=== PATIENT | male | born 1935 | race Caucasian/White ===

== ENCOUNTER 2017-06-14 12:21 | Inpatient (IN) | payer MEDICARE, MEDICAID ==
[2017-06-14] MEDS ORDERED: Levofloxacin 500mg/100mL 500 MG/100 ML BAG IV ONE ×2 (14:14→14:39)
[2017-06-14] MEDS ORDERED: Lactulose 10 Gm/15 mL 30mL UDC GT STA (14:45)
[2017-06-14] MEDS ORDERED: guaiFENesin 200 MG/10 ML UDC PO ONE (14:46)
[2017-06-14 14:48] LABS: % BASOPHILS 0.4 % (0.0-2.0); % EOSINOPHILS 0.8 % (0.0-5.0); % LYMPHOCYTES 19.6 % (20.0-50.0); % MONOCYTES 9.2 % (2.0-10.0); BASOPHILE ABSOLUTE 0.1 Th/cumm (0-0.2); EOSINOPHILE ABSOLUTE 0.1 Th/cmm (0.1-0.4); HEMATOCRIT 34.7 % (41.0-60); HEMOGLOBIN 11.7 gm/dL (12-16); LYMPHOCYTE ABSOLUTE 3.6 Th/cmm (1.5-3.0); MEAN CELL VOLUME 89.8 fl (80-99); MEAN CORPUSCULAR HEMOGLOBIN 30.4 pg (27.0-31.0); MEAN CORPUSCULAR HGB CONC 33.8 pg (28.0-36.0); MEAN PLATELET VOLUME 6.9 fl; MONOCYTE ABSOLUTE 1.7 Th/cmm (0.3-1.0); NEUTROPHILE ABSOLUTE 12.7 Th/cmm (1.8-8.0); PLATELET COUNT 381 Th/cmm (150-400); RED BLOOD COUNT 3.86 Mil/cmm (3.80-5.80); RED CELL DISTRIBUTION WIDTH 15.3 % (11.5-20.0)
[2017-06-14] MEDS ORDERED: Docusate Sodium/Senna Tab GT ONE (14:53)
[2017-06-14 14:55] LABS: WHITE BLOOD COUNT 18.2 Th/cmm (4.8-10.8)
[2017-06-14] MEDS ORDERED: Piperacillin Sodium/Tazobact 2.25 gm Vial IV ONE (15:08)
[2017-06-14 15:10] LABS: ALB/GLOB RATIO 1.1 (1.0-1.8); ALBUMIN 3.2 gm/dL (4.2-5.5); ALKALINE PHOSPHATASE 86 U/L (34-104); ANION GAP 11.1 (7.0-16.0); BILIRUBIN,TOTAL 0.5 mg/dL (0.3-1.0); BUN - UREA NITROGEN 38 mg/dL (7-25); CALCIUM SERUM 9.7 mg/dL (8.6-10.3); CARBON DIOXIDE 28.1 mEq/L (21.0-31.0); CHLORIDE 98 mEq/L (98-107); CREATININE - SERUM 3.7 mg/dL (0.7-1.3); GLUCOSE 121 mg/dL (70-105); POTASSIUM SERUM 3.2 mEq/L (3.5-5.1); SGOT 11 U/L (13-39); SGPT/ALT 11 U/L (7-52); SODIUM SERUM 134 mEq/L (136-145); TOTAL PROTEIN,SERUM 6.2 gm/dL (6.0-8.3)
[2017-06-14 15:11] LABS: CHOLESTEROL 125 mg/dL (<200); HDL -HIGH DENSITY LIPOPROTEIN 42 mg/dL (23-92); TRIGLYCERIDES 120 mg/dL (<150)
[2017-06-14 15:12] LABS: ALB/GLOB RATIO 1.2 (1.0-1.8); ALBUMIN 3.2 gm/dL (4.2-5.5); BILIRUBIN,DIRECT 0.16 mg/dL (0.0-0.2); BILIRUBIN,TOTAL 0.5 mg/dL (0.3-1.0); TOTAL PROTEIN,SERUM 5.9 gm/dL (6.0-8.3)
--- NOTE | 2017-06-14 15:28 | Diagnostic Imaging Report ---
Portable chest x-ray HISTORY: Cough The heart size appears to be at the upper limits of normal. No acute focal pulmonary processes. A vascular catheter tip is in the region of the superior vena cava. Several calcifications noted about the left shoulder region that appear to be related to the synovium (question synovial chondromatosis). Severe arthritic changes also noted. IMPRESSION: 1. No acute pulmonary abnormalities
--- NOTE | 2017-06-14 16:53 | ER Physician Documentation ---
DATE OF SERVICE: 06/14/2017 ER PATIENT EVALUATION AND TREATMENT The patient came from [facility] with a dialysis device in the right subclavian vein and right internal jugular vein had tunneled down and he gets dialysis for the past 3 months every Wednesday, Wednesday and Wednesday. The patient's primary care physician is Dr. Elaine Perez, his telephone number is [phone]. The patient belongs to him. I am seeing this patient today for the first time in the Emergency Room. The patient himself can speak some Israeli. The patient's cannot speak Israeli. The was present with me and the nurse Roma, was able to help me translate some of the history from the patient. The patient came with nausea and vomiting and has no bowel movement for the past two to three days. The patient had some cough before, but no cough at the present moment. ALLERGIES: Opiates and narcotics. HISTORY OF PRESENT ILLNESS: The patient apparently had been fairly stable, then he started having some constipation and then nausea and vomiting and cough. Before few days, he did cough up some phlegm, but now according to the , the patient feels better. The patient does not have any fever, chills or rigors. The patient's vital signs when he came in was temperature 98.8, pulse 97, respirations 22, blood pressure 121/83, oxygen saturation 93%. Height is 5 feet 8 inches and weighing over 194 pounds. MEDICAL DECISION MAKING: The patient does not have any pain and his code status is found to be blue. The patient does not have any history of pneumonia, flu, tetanus. He does not smoke, he does not drink, he does not use any illicit drugs. PAST MEDICAL HISTORY: He has a history of depression, history of some skin ulcer at the present moment, I see in both hands. The patient has some tear in the skin that needs to be taken care and the nurse will take care of that and clean it up with hydrogen peroxide and apply dressing over there. The patient has a history of diabetes, hypertension, end-stage renal failure and the patient is on dialysis program. FAMILY HISTORY: Benign and negative. The patient had venous mapping done in the past to find out about way to put the shunts, peripheral access of the forearm veins. Bilateral upper extremity venogram, bilateral central vein venogram was done. It showed the patient had arthritic patent foramen veins bilaterally. In the right upper extremity, the cephalic and the basilic veins are patent with dominant flow through the basilic vein. Central venous system is patent, but the patient does have a right jugular dialysis catheter in place and there may be some stenosis around the right brachiocephalic vein around the catheter. On the left side, the basilic cephalic veins are seen, dominant fluorescein through the basilic veins. The patient came from [facility], [facility] and patient had some lab workup done over there. This was done on 06/04/2016, hardly 9 days before, at which time his white count was 11.3 with a shift to the left was detected. His platelet count was 241,000. Hematocrit is 34.8. BUN was found to be 55, creatinine 3.8. White count was up. Hemoglobin was 16.5. Sed rate was found to be 17. The patient's glucose level, electrolytes were normal. BUN 55, creatinine 3.8. This is male patient, but they gave the GFR for the female patient. With a male patient, is about 16 and so his GFR is found to be low. The patient other history of present illness is negative for smoking, COPD, emphysema, bronchitis. Some cough and constipation is present. OTHER DIAGNOSES: At present that I would mention towards the end of the dictation so that repetition is avoided. The patient is getting renal diet, mechanical soft texture, regular consistency. The patient has a G-tube placement done and feeding has been changed from the renal diet to nephro one time a day for supplement. There is 237 mL. REVIEW OF SYSTEMS: There is no history of stroke or paralysis. Some dementia history is present. PHYSICAL EXAMINATION: The patient appears to be at least awake. At least, he is alert. At least, he knows Israeli and he did speak some Israeli words to me and is not in any acute cardiorespiratory distress. He appears to be weak. According to the , he does not walk for the past 5 months. He is adequately built, but very poorly nourished. He has muscular atrophy seen in the lower extremities. Peripheral pulses are faint, but otherwise is okay. On general exam, what I mentioned earlier there is no gross evidence of congestive heart failure. Neck veins are not distended. Right-sided double lumen catheter has been inserted though the internal jugular vein. The patient has a history of major depressive disorder and end-stage renal failure. The patient also had ESBL infection resistance and essential hypertension, muscle weakness, oropharyngeal phase, type 2 diabetes mellitus with diabetic nephropathy. The patient has long-term use of insulin in the past. The patient had pressure ulcer of sacral region, stage III. Acute embolism and thrombosis of unspecified. Deep veins of lower extremities was noted. On physical examination of the chest, the trachea is central. Fair air entry is present in both lungs, but bibasilar crackles are audible in both the lungs. The heart reveals S1, S2 present. Third heart sounds seem to be absent to my knowledge. Fourth heart sound is present. I did not appreciate a good heart sound present in him, but the crackles that I heard are sounding like moist crackles present in this patient. The patient is allergic to hydrocodone, hydromorphone, oxycodone, morphine related vomiting x 3. No bowel movement for 4 days, possible obstruction, I doubt. Clinically, there is no definite evidence of any obstruction. Vomiting x 3. Dialysis; the patient was sedated for today at 2:00 p.m. Since the patient has abdominal pain and vomiting and constipation, obviously ileus or partial intestinal obstruction needs to be ruled out. Heart sounds as I mentioned is present. No abnormal murmur, click or rub is present. Abdomen is soft, benign, and bowel sounds are present. Liver, spleen not enlarged. No free fluid in the abdominal cavity. Central nervous system; the patient at least is alert. No tenderness in the costovertebral angle. EKG that was done by the composite bond technician just now shows evidence of normal sinus rhythm, left anterior fascicular block, right bundle branch block and poor R-wave progression from V1-V3. There may be evidence of right ventricular hypertrophy in this patient and most likely there is a good suggestion that there is a biventricular hypertrophy in view of the large of at least 15 mm seen in V6. All this could help in the diagnosis of biventricular enlargement. In conclusion, the patient presented with abdominal pain, nausea, vomiting and constipation for 3 days. Obviously, intestinal obstruction needs to be ruled out, but the patient is not taking any medications like hydrocodone, hydromorphone, oxycodone, morphine. He is allergic to this medication, but we will give him some lactulose through the G-tube and see what the results are. If needed, we can get gastric evaluation done by Gastrografin evaluation through the G-tube done. The patient is getting dialysis as per Dr. Perez. Pharmacy is [facility]. The patient's other diagnosis are pressure ulcer of the left heel, stage 1; low back pain; gastroesophageal reflux disease without esophagitis, long-term use of anticoagulants; acquired absence of other genital organs, major depressive disorder, single episode, end-stage renal disease, on dialysis program Wednesday, Wednesday and Wednesday. The patient had a history of ESBL type of infection; extended spectrum beta lactamase resistant; essential primary hypertension; muscle weakness; unspecified wasting of the muscles; long-term use of insulin; pressure ulcer on the sacral region, stage III; embolism and thrombosis, of unspecified diagnosis. The plan is to get a chest x-ray done and we will give the patient some lactulose and may be enema as needed. OTHER DIAGNOSES: Includes hypertension, diabetes mellitus, end-stage renal disease, dysphagia, depression, etc. PLAN: To investigate, treat the patient, give him Zofran, give some lactulose to the patient along with some milk of magnesia and other diabetes medicines and other hypertensive medications that he was taking will be continued. Dialysis by the dialysis doctor will be continued. I do not see any list of the medications. Here, the patient's other diagnosis are end-stage renal failure should be noted. The patient has anemia and most likely it might be the patient has some kind of maybe some dehydration also might have been present. The patient is getting renal diet and nephro as a supplement. In every shift, check the patency and placement of the G-tube residual, etc. will need to be checked up. JOB# [id number]
[2017-06-14] MEDS ORDERED: Albuterol Nebulizer 2.5mg/3mL HHN PRN (17:52)
[2017-06-14] MEDS ORDERED: INSULIN ASPART, RECOMBINANT 100 UNITS/ML SUBQ SCH (21:00)
[2017-06-14 23:06] VITALS: BP 127/78
--- NOTE | 2017-06-15 08:07 | History & Physical ---
ADMIT DATE: 06/14/2017 CHIEF COMPLAINT: Intractable nausea and vomiting and fevers. HISTORY OF PRESENT ILLNESS: The patient is an 82-year-old male who is a patient of mine at [facility]. He is dialysis dependent. The patient presented to the hospital complaining of nausea, vomiting, abdominal pain, and some fevers as well. He was found to have sepsis and admitted for further workup and treatment. PAST MEDICAL HISTORY: Significant for depression, dysphagia, renal failure with end-stage renal disease, malnutrition, diabetes, GERD, and depression. SOCIAL HISTORY: No history of alcohol, tobacco, or drug abuse. ALLERGIES: He is apparently allergic to OPIATES and NARCOTICS. Apparently, it is not a true allergy, but he does experience side effects. FAMILY HISTORY: Noncontributory. PAST SURGICAL HISTORY: Positive for dialysis catheter placement and G-tube placement. MEDICATIONS: All medication reviewed and reconciled. REVIEW OF SYSTEMS: GENERAL: Positive for recent fatigue and fevers. HEENT: No recent head trauma, change in vision, taste, hearing, or smell. Oral: No recent pain or discharge. NECK: No recent tracheal deviation. ABDOMEN: Positive for recent abdominal pain. GASTROINTESTINAL: Positive for recent nausea and vomiting. SKIN: No recent rashes. PSYCHIATRIC: He has history of depression, but no psychosis. MUSCULOSKELETAL: Positive history of muscle weakness. NEUROLOGIC: Possible history of stroke in the past. RESPIRATORY: No history of recent COPD exacerbation. No history of asthma. GENITOURINARY: Positive history of dysuria with a minimal amount of urine he makes. PHYSICAL EXAMINATION: VITAL SIGNS: Temperature 98.7 degrees, heart rate is 94, respirations 20, and blood pressure 151/84. Currently, pain is about 2/10. GENERAL: No acute distress, awake. He is alert to name. He knows he is in the hospital. HEENT: No acute issues. NECK: Trachea is midline. ABDOMEN: Slightly tender, but bowel sounds are present. He thinks he is constipated SKIN: No rashes. NEUROLOGIC: Stable. MUSCULOSKELETAL: Decreased muscle strength in upper and lower extremities. PSYCHIATRIC: No psychosis or hallucination. LABORATORY DATA: White count is 18.2, hemoglobin is 11.7, and platelet count 381,000. Sodium 134, potassium 3.2, chloride 98, bicarbonate 28.1, BUN 38, creatinine 3.7, and glucose 121. Chest x-ray is negative. ASSESSMENT: 1. Sepsis. 2. End-stage renal disease. 3. Gastrointestinal upset. 4. Dysphagia. 5. Vasomotor nephropathy. 6. Hypokalemia. 7. Moderate malnutrition. 8. Diabetes mellitus. 9. Gastroesophageal reflux disease. 10. Depression. PLAN: The patient's UA has been ordered along with a KUB and repeat chest x-ray. Follow up on blood cultures. Dr. Huff has been consulted for Nephrology. His group will be seeing the patient. Follow up on the rest of the labs. Continue IV Zosyn. He will be requiring dialysis as well. Prognosis is guarded. JOB# [id number]
[2017-06-15 08:11] LABS: IRON LC 41 ug/dL (38-169); TIBC (LC) 183 ug/dL (250-450); UIBC 142 ug/dL (111-343)
--- NOTE | 2017-06-15 08:31 | Diagnostic Imaging Report ---
CHEST X-RAY: AP view INDICATION: Sepsis COMPARISON: 06/14/2017 FINDINGS: Right dialysis catheter is stable. No focal consolidation or pleural effusions. Borderline prominent heart is noted with atherosclerosis. IMPRESSION: No focal consolidation identified Borderline prominent heart with atherosclerotic vascular disease.
--- NOTE | 2017-06-15 08:31 | Diagnostic Imaging Report ---
KUB single view HISTORY: Nausea vomiting abdominal pain. COMPARISON: None FINDINGS: Percutaneous gastric feeding tube is noted. Nonspecific calcifications of the left mid abdomen are noted. Moderate stool is noted with distal feculent impaction. Atherosclerosis is noted. Degenerative changes of spine are noted. IMPRESSION: Moderate amount of stool with distal fecal impaction. Percutaneous gastric feeding tube and calcification along the left hemiabdomen, nonspecific and may represent renal stones.
[2017-06-15] MEDS ORDERED: Vitamin B Complex w/Vitamin C Tab PO SCH (09:00)
[2017-06-15] MEDS ORDERED: DICLOFENAC SODIUM 1% TP SCH (09:00)
[2017-06-15] MEDS ORDERED: Multivitamin w/ Minerals Tab GT SCH (09:00)
[2017-06-15] MEDS: Piperacillin/Tazobact 2.25 gm in 0.9% NS 50 ML IV SCH ×3 (09:08→17:11)
[2017-06-15] MEDS: Multivitamin w/ Minerals Tab PO SCH (09:09)
[2017-06-15] MEDS: Vitamin B Complex w/Vitamin C Tab PO SCH (09:11)
[2017-06-15 11:00] LABS: URINE MICROSCOPIC INDICATED? YES; URINE SOURCE CATH
[2017-06-15 11:17] LABS: URINE BILIRUBIN SMALL (NEGATIVE); URINE BLOOD TRACE (NEGATIVE); URINE GLUCOSE (UA) NEGATIVE (NEGATIVE); URINE KETONE NEGATIVE (NEGATIVE); URINE LEUKOCYTE ESTERASE MODERATE (NEGATIVE); URINE NITRATE NEGATIVE (NEGATIVE); URINE PH 5.5 (4.6 - 8.0); URINE PROTEIN >=300 mg/dL (NEGATIVE); URINE UROBILINOGEN 0.2 E.U./dL (0.2 - 1.0)
[2017-06-15 11:18] LABS: URINE CLARITY CLOUDY (CLEAR); URINE COLOR YELLOW
[2017-06-15 11:35] LABS: URINE EPITHELIAL CELLS FEW /lpf (FEW); URINE WBC 25-50 /hpf (0-5)
[2017-06-15 11:36] LABS: URINE BACTERIA 2+ /hpf (NONE SEEN)
[2017-06-15 11:37] LABS: URINE OTHER CRYSTALS FEW /hpf
--- NOTE | 2017-06-15 16:01 | General Progress Note ---
Subjective - Review of Systems Service Date: 06/15/17 Events since last encounter: Tolerated HD evening of 06/14, 1.5L removed Objective - Results Result Diagrams: 06/14/17 14:30 06/14/17 14:30 Recent Labs: Laboratory Last Values WBC 18.2 Th/cmm (4.8-10.8) H 06/14/17 14:30 RBC 3.86 Mil/cmm (3.80-5.80) 06/14/17 14:30 Hgb 11.7 gm/dL (12-16) L 06/14/17 14:30 Hct 34.7 % (41.0-60) L 06/14/17 14:30 MCV 89.8 fl (80-99) 06/14/17 14:30 MCH 30.4 pg (27.0-31.0) 06/14/17 14:30 MCHC Differential 33.8 pg (28.0-36.0) 06/14/17 14:30 RDW 15.3 % (11.5-20.0) 06/14/17 14:30 Plt Count 381 Th/cmm (150-400) 06/14/17 14:30 MPV 6.9 fl 06/14/17 14:30 Neutrophils % 70.0 % (40.0-80.0) 06/14/17 14:30 Lymphocytes % 19.6 % (20.0-50.0) L 06/14/17 14:30 Monocytes % 9.2 % (2.0-10.0) 06/14/17 14:30 Eosinophils % 0.8 % (0.0-5.0) 06/14/17 14:30 Basophils % 0.4 % (0.0-2.0) 06/14/17 14:30 Sodium 134 mEq/L (136-145) L 06/14/17 14:30 Potassium 3.2 mEq/L (3.5-5.1) L 06/14/17 14:30 Chloride 98 mEq/L (98-107) 06/14/17 14:30 Carbon Dioxide 28.1 mEq/L (21.0-31.0) 06/14/17 14:30 Anion Gap 11.1 (7.0-16.0) 06/14/17 14:30 BUN 38 mg/dL (7-25) H 06/14/17 14:30 Creatinine 3.7 mg/dL (0.7-1.3) H 06/14/17 14:30 Est GFR ( Amer) TNP 06/14/17 14:30 Est GFR (Non-Af Amer) TNP 06/14/17 14:30 BUN/Creatinine Ratio 10.3 06/14/17 14:30 Glucose 121 mg/dL (70-105) H 06/14/17 14:30 POC Glucose 159 MG/DL (70 - 105) H 06/15/17 14:38 Whole Bld Lactic Acid 0.90 mmol/L (0.60-1.99) 06/14/17 15:13 Calcium 9.6 mg/dL (8.6-10.3) 06/14/17 14:30 Phosphorus 3.8 mg/dL (2.5-5.0) 06/14/17 14:00 Magnesium 2.2 mg/dL (1.9-2.7) 06/14/17 14:30 Iron 41 ug/dL (38-169) 06/14/17 15:13 TIBC 183 ug/dL (250-450) L 06/14/17 15:13 Iron Saturation 22 % (15-55) 06/14/17 15:13 Unsaturated IBC 142 ug/dL (111-343) 06/14/17 15:13 Total Bilirubin 0.5 mg/dL (0.3-1.0) 06/14/17 14:30 Direct Bilirubin 0.16 mg/dL (0.0-0.2) 06/14/17 14:30 AST 11 U/L (13-39) L 06/14/17 14:30 ALT 12 U/L (7-52) 06/14/17 14:30 Alkaline Phosphatase 90 U/L (34-104) 06/14/17 14:30 C-Reactive Protein 1604.0 mg/dL (0.0-0.9) H 06/14/17 14:30 B-Natriuretic Peptide 562.0 pg/mL (5.0-100.0) H 06/14/17 14:30 Total Protein 5.9 gm/dL (6.0-8.3) L 06/14/17 14:30 Albumin 3.2 gm/dL (4.2-5.5) L 06/14/17 14:30 Globulin 2.7 gm/dL 06/14/17 14:30 Albumin/Globulin Ratio 1.2 (1.0-1.8) 06/14/17 14:30 Triglycerides 120 mg/dL (<150) 06/14/17 14:30 Cholesterol 125 mg/dL (<200) 06/14/17 14:30 LDL Cholesterol Direct 66 mg/dL (75-193) L 06/14/17 14:30 HDL Cholesterol 42 mg/dL (23-92) 06/14/17 14:30 Urine Source CATH 06/15/17 09:30 Urine Color YELLOW 06/15/17 09:30 Urine Clarity CLOUDY (CLEAR) 06/15/17 09:30 Urine pH 5.5 (4.6 - 8.0) 06/15/17 09:30 Ur Specific Cordell 1.025 (1.005-1.030) 06/15/17 09:30 Urine Protein >=300 mg/dL (NEGATIVE) 06/15/17 09:30 Urine Glucose (UA) NEGATIVE mg/dL (NEGATIVE) 06/15/17 09:30 Urine Ketones NEGATIVE mg/dL (NEGATIVE) 06/15/17 09:30 Urine Blood TRACE (NEGATIVE) 06/15/17 09:30 Urine Nitrate NEGATIVE (NEGATIVE) 06/15/17 09:30 Urine Bilirubin SMALL (NEGATIVE) H 06/15/17 09:30 Urine Urobilinogen 0.2 E.U./dL (0.2 - 1.0) 06/15/17 09:30 Ur Leukocyte Esterase MODERATE (NEGATIVE) H 06/15/17 09:30 Urine RBC 2-5 /hpf (0-5) H 06/15/17 09:30 Urine WBC 25-50 /hpf (0-5) H 06/15/17 09:30 Ur Epithelial Cells FEW /lpf (FEW) 06/15/17 09:30 Uric Acid Crystals FEW /hpf (NONE SEEN) 06/15/17 09:30 Other Crystals FEW /hpf 06/15/17 09:30 Urine Bacteria 2+ /hpf (NONE SEEN) H 06/15/17 09:30 - Physical Exam Vitals and I&O: Vital Signs Temp 97.2 F 06/15/17 08:00 Pulse 80 06/15/17 13:48 Resp 20 06/15/17 13:48 BP 104/65 06/15/17 10:27 Pulse Ox 97 06/15/17 13:48 Intake & Output 06/14/17 06/15/17 06/15/17 18:59 06:59 18:59 Intake Total 150 0 50 Output Total 1500 Balance 150 -1500 50 Weight (lbs) 67.631 kg Intake: Intake, IV Amount 150 50 Levofloxacin 500mg/100mL 100 500 mg In 100 ml @ 100 mls/hr IV X1 ONE Rx#: [id number] Piperacillin Sodium/ 50 Tazobact 2.25 gm In Sodium Chloride 0.9% 50 ml @ 100 mls/hr IV Q6HR [facility] Rx#:[id number] Piperacillin Sodium/ 50 Tazobact 2.25 gm In Sodium Chloride 0.9% 50 ml @ 100 mls/hr IV X1 ONE Rx#:[id number] Oral 0 Output: Hemodialysis 1500 Other: # Voids 1 # Bowel Movements 1 Active Medications: Current Medications Acetaminophen (Tylenol) 650 mg PO Q6H PRN PRN Reason: Pain (Moderate) Stop: 08/14/17 15:10 Albuterol Sulfate (Albuterol 2.5mg/3ml Neb Ud) 2.5 mg HHN Q6HR PRN PRN Reason: Shortness of Breath Stop: 08/13/17 17:51 Docusate Sodium (Colace) 100 mg PO BID [facility] Stop: 08/14/17 08:59 Last Admin: 06/15/17 09:09 Dose: 100 mg Duloxetine HCl (Cymbalta) 30 mg PO HS [facility] PRN Reason: Protocol Stop: 08/13/17 20:59 Famotidine (Pepcid) 10 mg PO DAILY [facility] Stop: 08/14/17 08:59 Last Admin: 06/15/17 09:09 Dose: 10 mg Heparin Sodium (Porcine) (Heparin) 5,000 units SUBQ Q12H [facility] Stop: 08/13/17 20:59 Last Admin: 06/15/17 09:14 Dose: 5,000 units Piperacillin Sod/Tazobactam (Sod 2.25 gm/ Sodium Chloride) 50 mls @ 100 mls/hr IV Q6HR [facility] Stop: 08/14/17 08:29 Last Admin: 06/15/17 13:21 Dose: 100 mls/hr Insulin Aspart (Novolog Insulin Sliding Scale) 0 units SUBQ ACHS ERIC PRN Reason: Protocol Stop: 08/14/17 16:29 Lidocaine (Lidoderm 5% Patch) 1 patch TD DAILY [facility] Stop: 08/14/17 15:14 Metoclopramide HCl (Reglan) 5 mg PO TID ERIC Stop: 08/13/17 20:14 Last Admin: 06/15/17 13:21 Dose: 5 mg Miscellaneous (Diclofenac Sodium [Voltaren]) 1 % TP DAILY ERIC Stop: 08/14/17 08:59 Miscellaneous (Zosyn Iv Per Pharmacy) 1 ea MC PRN PRN PRN Reason: PROTOCOL Stop: 08/14/17 07:12 Nifedipine (Procardia) 30 mg PO BID [facility] Stop: 08/14/17 08:59 Last Admin: 06/15/17 10:27 Dose: Not Given Ondansetron HCl (Zofran) 4 mg IV Q4H PRN PRN Reason: Nausea / Vomiting Stop: 08/13/17 17:57 Last Admin: 06/15/17 00:17 Dose: 4 mg Pneumococcal Polyvalent Vaccine (Pneumovax) 0.5 ml IM .ONCE ONE Stop: 06/16/17 23:04 Senna (Senna) 17.2 mg PO DAILY ERIC Stop: 08/14/17 08:59 Last Admin: 06/15/17 09:11 Dose: 17.2 mg Sevelamer Carbonate (Renvela) 800 mg PO TID ERIC Stop: 08/13/17 20:59 Last Admin: 06/15/17 13:21 Dose: 800 mg Sulfasalazine (Azulfidine) 500 mg PO BID ERIC Stop: 08/14/17 08:59 Last Admin: 06/15/17 10:21 Dose: 500 mg Vitamin B Complex/Vit C/Folic Acid (Vitamin B Complex W/Vitamin C) 1 tab PO DAILY ERIC Stop: 08/14/17 08:59 Last Admin: 06/15/17 09:11 Dose: 1 tab General: Alert, Oriented x3 Cardiovascular: Regular rate Lungs: Clear to auscultation Extremities: no Clubbing, no Cyanosis, no Edema, no Pulses, no Tender, no Other Assessment/Plan - Problem List Patient Problems: All Active Problems NAUSEA AND VOMITING WITH NO BM (Acute) - Assessment Assessment: ESRD on HD, MWF BP controlled on HD H&H above range, no need for R[place] renal dosing antimicrobials Full consult to follow:
[2017-06-15 16:14] LABS: A1C % 5.5 % (4.0-6.0)
[2017-06-15] MEDS: INSULIN ASPART SLIDING SCALE 100 UNITS/ML UNIT SUBQ SCH ×2 (17:12→21:11)
[2017-06-15] MEDS: Lidocaine 5% Patch TD SCH (18:11)
--- NOTE | 2017-06-16 00:15 | Consultation ---
Consult Note - Consult Note Service Date: 06/15/17 Consult Note: PHYSICIAN Consultation Note: Date of Admission: 06/14/17 Purpose of Consultation: ESRD Chief Complaint: Mr. López is a 82 yo M h/o ESRD 2 DM/HTN nephrosclerosis known to our service (HD at [facility] on MWF schedule) [facility] / [facility] and nausea. Pt underwent HD on 1/8 PM. On examination, denies complaints, nausea is improved. 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) HYPOKALEMIA (06/14/17) MAJOR DEPRESSIVE DISORDER, RECURRENT, UNSPECIFIED (06/14/17) HYP CHR KIDNEY DISEASE W STAGE 5 CHR KIDNEY DISEASE OR ESRD (06/14/17) GASTRO-ESOPHAGEAL REFLUX DISEASE WITHOUT ESOPHAGITIS (06/14/17) ACUTE KIDNEY FAILURE WITH TUBULAR NECROSIS (06/14/17) END STAGE RENAL DISEASE (06/14/17) DYSPHAGIA, UNSPECIFIED (06/14/17) FEVER, UNSPECIFIED (06/14/17) DEPENDENCE ON RENAL DIALYSIS (06/14/17) Allergies Allergy/AdvReac Type Severity Reaction Status Date / Time hydrocodone Allergy Verified 06/14/17 13:31 hydromorphone Allergy Verified 06/14/17 13:31 morphine Allergy Verified 06/14/17 13:32 oxycodone Allergy Verified 06/14/17 13:32 AND RELATED OPIATES Allergy Uncoded 06/14/17 13:32 Vital Signs Temp 98.6 F 06/15/17 20:00 Pulse 85 06/15/17 21:22 Resp 20 06/15/17 21:22 BP 120/62 06/15/17 20:00 Pulse Ox 99 06/15/17 21:22 Intake & Output 06/15/17 06/15/17 06/16/17 06:59 18:59 06:59 Intake Total 0 150 Output Total 1500 Balance -1500 150 Weight (lbs) 67.631 kg Intake: Intake, IV Amount 150 Piperacillin Sodium/ 150 Tazobact 2.25 gm In Sodium Chloride 0.9% 50 ml @ 100 mls/hr IV Q6HR [facility] Rx#:[id number] Oral 0 Output: Hemodialysis 1500 Other: # Voids 1 # Bowel Movements 1 Laboratory Results - last 24 hr 06/15/17 06/15/17 06/15/17 07:06 09:30 14:38 POC Glucose 159 H Hemoglobin A1c % 5.5 Urine Source CATH Urine Color YELLOW Urine Clarity CLOUDY Urine pH 5.5 Ur Specific [place] 1.025 Urine Protein >=300 Urine Glucose (UA) NEGATIVE Urine Ketones NEGATIVE Urine Blood TRACE Urine Nitrate NEGATIVE Urine Bilirubin SMALL H Urine Urobilinogen 0.2 Ur Leukocyte Esterase MODERATE H Urine RBC 2-5 H Urine WBC 25-50 H Ur Epithelial Cells FEW Uric Acid Crystals FEW Other Crystals FEW Urine Bacteria 2+ H 06/15/17 06/15/17 16:46 20:14 POC Glucose 114 H 128 H Hemoglobin A1c % Urine Source Urine Color Urine Clarity Urine pH Ur Specific [place] Urine Protein Urine Glucose (UA) Urine Ketones Urine Blood Urine Nitrate Urine Bilirubin Urine Urobilinogen Ur Leukocyte Esterase Urine RBC Urine WBC Ur Epithelial Cells Uric Acid Crystals Other Crystals Urine Bacteria Home Medication Medication Instructions Recorded Type Albuterol Nebulizer 2.5mg/3mL 2.5 mg IH Q6HR PRN 06/14/17 History [Albuterol Neb UD*] Diclofenac Sodium [Voltaren] 1 % TP DAILY 06/14/17 History Docusate Sodium [Colace] 100 mg PO BID 06/14/17 History Duloxetine HCl [Cymbalta] 30 mg PO HS 06/14/17 History Folic Acid/Vit Bcomp,C 1 tab PO DAILY 06/14/17 History [Nephro-Jc Tablet] Heparin Sodium [Heparin] 5,000 units SUBQ Q12H 06/14/17 History Insulin Aspart, Recombinant 0 unit SUBQ ACHS 06/14/17 History [NovoLOG] Lidocaine 5% Patch [Lidoderm 5% 1 patch TP DAILY 06/14/17 History Patch] Multivitamin w/ Minerals 1 tab PO DAILY 06/14/17 History [Theragran M] RX: Famotidine 10 mg PO DAILY 06/14/17 History RX: Metoclopramide HCl 5 mg PO TID 06/14/17 History RX: Nifedipine 30 mg PO BID 06/14/17 History Sennosides A and B [Senna] 2 tab PO DAILY 06/14/17 History Sevelamer Carbonate [Renvela] 800 mg PO TID 06/14/17 History Sulfasalazine [Sulfazine] 500 mg PO BID 06/14/17 History Current Medications Generic Name Dose Route Start Last Admin Trade Name Freq PRN Reason Stop Dose Admin Acetaminophen 650 mg 06/15/17 15:11 Tylenol PO 08/14/17 15:10 Q6H PRN Pain (Moderate) Albuterol Sulfate 2.5 mg 06/14/17 17:52 Albuterol 2.5mg/3ml Neb Ud HHN 08/13/17 17:51 Q6HR PRN Shortness of Breath Docusate Sodium 100 mg 06/15/17 09:00 06/15/17 17:04 Colace PO 08/14/17 08:59 100 mg BID ERIC Administration Duloxetine HCl 30 mg 06/14/17 21:00 06/15/17 21:15 Cymbalta PO 08/13/17 20:59 30 mg HS ERIC Administration Protocol Famotidine 10 mg 06/15/17 09:00 06/15/17 09:09 Pepcid PO 08/14/17 08:59 10 mg DAILY ERIC Administration Heparin Sodium (Porcine) 5,000 units 06/14/17 21:00 06/15/17 21:18 Heparin SUBQ 08/13/17 20:59 5,000 units Q12H ERIC Administration Piperacillin Sod/Tazobactam 50 mls @ 100 mls/hr 06/15/17 08:30 06/15/17 17:49 Sod 2.25 gm/ Sodium Chloride IV 08/14/17 08:29 Infused Q6HR ERIC Infusion Insulin Aspart 0 units 06/15/17 16:30 06/15/17 21:11 Novolog Insulin Sliding Scale SUBQ 08/14/17 16:29 Not Given ACHS ERIC Protocol Lidocaine 1 patch 06/15/17 17:00 06/15/17 18:11 Lidoderm 5% Patch TD 08/14/17 16:59 1 patch DAILY@1700 ERIC Administration Metoclopramide HCl 5 mg 06/14/17 20:15 06/15/17 21:16 Reglan PO 08/13/17 20:14 5 mg TID ERIC Administration Miscellaneous 1 % 06/15/17 09:00 Diclofenac Sodium [Voltaren] TP 08/14/17 08:59 DAILY ERIC Miscellaneous 1 ea 06/15/17 07:13 Zosyn Iv Per Pharmacy [facility] 08/14/17 07:12 PRN PRN PROTOCOL Nifedipine 30 mg 06/15/17 09:00 06/15/17 17:05 Procardia PO 08/14/17 08:59 30 mg BID ERIC Administration Ondansetron HCl 4 mg 06/14/17 17:58 06/15/17 00:17 Zofran IV 08/13/17 17:57 4 mg Q4H PRN Administration Nausea / Vomiting Pneumococcal Polyvalent Vaccine 0.5 ml 06/16/17 23:03 Pneumovax IM 06/16/17 23:04 .ONCE ONE Senna 17.2 mg 06/15/17 09:00 06/15/17 09:11 Senna PO 08/14/17 08:59 17.2 mg DAILY ERIC Administration Sevelamer Carbonate 800 mg 06/14/17 21:00 06/15/17 21:16 Renvela PO 08/13/17 20:59 800 mg TID ERIC Administration Sulfasalazine 500 mg 06/15/17 09:00 06/15/17 17:04 Azulfidine PO 08/14/17 08:59 500 mg BID ERIC Administration Vitamin B Complex/Vit C/Folic Acid 1 tab 06/15/17 09:00 06/15/17 09:11 Vitamin B Complex W/Vitamin C PO 08/14/17 08:59 1 tab DAILY ERIC Administration Social History Smoking Status Unknown if ever smoked Drug Use No Alcohol Use No Family Medical History Family Medical History Start: 06/14/17 16: 43 Freq: ONCE Status: Active Document 06/14/17 18:00 ISMAEL (Rec: 06/14/17 18:06 ISMAEL [id number] ) Family Medical History Father History Unknown Yes Mother History Unknown Yes Physical Exam: General: WDWN man, NAD, A&O x 3, pleasant Cardio: regular rate, nl rhythm, no m/r/g Respiratory: clear bilaterally Abdominal: active bowel sounds, non-distended Extremities: trace edema, 1+ pulses distally. AVF +thrill Assessment: ESRD on HD Anemia secondary to ESRD Sepsis, unclear etiology Plan: HD MWF. See progress note dated same day for details Signed, Oswaldo Arshad
[2017-06-16] MEDS: Piperacillin/Tazobact 2.25 gm in 0.9% NS 50 ML IV SCH ×4 (01:44→18:23)
[2017-06-16] MEDS: INSULIN ASPART SLIDING SCALE 100 UNITS/ML UNIT SUBQ SCH ×4 (06:34→22:14)
[2017-06-16 08:18] LABS: % BASOPHILS 0.1 % (0.0-2.0); % LYMPHOCYTES 27.1 % (20.0-50.0); % MONOCYTES 9.5 % (2.0-10.0); % NEUTROPHILS 60.3 % (40.0-80.0); EOSINOPHILE ABSOLUTE 0.3 Th/cmm (0.1-0.4); HEMATOCRIT 31.3 % (41.0-60); HEMOGLOBIN 10.5 gm/dL (12-16); LYMPHOCYTE ABSOLUTE 3.1 Th/cmm (1.5-3.0); MEAN CELL VOLUME 90.3 fl (80-99); MEAN CORPUSCULAR HEMOGLOBIN 30.4 pg (27.0-31.0); MEAN CORPUSCULAR HGB CONC 33.6 pg (28.0-36.0); MEAN PLATELET VOLUME 7.2 fl; MONOCYTE ABSOLUTE 1.1 Th/cmm (0.3-1.0); NEUTROPHILE ABSOLUTE 6.9 Th/cmm (1.8-8.0); PLATELET COUNT 318 Th/cmm (150-400); RED BLOOD COUNT 3.46 Mil/cmm (3.80-5.80); RED CELL DISTRIBUTION WIDTH 15.1 % (11.5-20.0)
[2017-06-16 08:19] LABS: WHITE BLOOD COUNT 11.4 Th/cmm (4.8-10.8)
[2017-06-16 08:40] LABS: ANION GAP 12.6 (7.0-16.0); BUN - UREA NITROGEN 29 mg/dL (7-25); CALCIUM SERUM 8.9 mg/dL (8.6-10.3); CARBON DIOXIDE 28.9 mEq/L (21.0-31.0); CHLORIDE 96 mEq/L (98-107); CREATININE - SERUM 3.4 mg/dL (0.7-1.3); GLUCOSE 109 mg/dL (70-105); POTASSIUM SERUM 3.5 mEq/L (3.5-5.1); SODIUM SERUM 134 mEq/L (136-145)
[2017-06-16] MEDS: Multivitamin w/ Minerals Tab PO SCH (09:48)
[2017-06-16] MEDS: Vitamin B Complex w/Vitamin C Tab PO SCH (09:49)
[2017-06-16] MEDS ORDERED: Lactulose 10 Gm/15 mL 30mL UDC PO ONE (10:08)
--- NOTE | 2017-06-16 10:13 | General Progress Note ---
Subjective - Review of Systems Service Date: 06/16/17 Subjective: Pt seen and eval. In bed. Weak. No n,v,d or cp. On Zosyn. WBC trending down. Very constipated. No fevers or chills. Objective - Results Result Diagrams: 06/16/17 07:30 06/16/17 07:30 Recent Labs: Laboratory Last Values WBC 11.4 Th/cmm (4.8-10.8) H D 06/16/17 07:30 RBC 3.46 Mil/cmm (3.80-5.80) L 06/16/17 07:30 Hgb 10.5 gm/dL (12-16) L 06/16/17 07:30 Hct 31.3 % (41.0-60) L 06/16/17 07:30 MCV 90.3 fl (80-99) 06/16/17 07:30 MCH 30.4 pg (27.0-31.0) 06/16/17 07:30 MCHC Differential 33.6 pg (28.0-36.0) 06/16/17 07:30 RDW 15.1 % (11.5-20.0) 06/16/17 07:30 Plt Count 318 Th/cmm (150-400) 06/16/17 07:30 MPV 7.2 fl 06/16/17 07:30 Neutrophils % 60.3 % (40.0-80.0) 06/16/17 07:30 Lymphocytes % 27.1 % (20.0-50.0) 06/16/17 07:30 Monocytes % 9.5 % (2.0-10.0) 06/16/17 07:30 Eosinophils % 3.0 % (0.0-5.0) 06/16/17 07:30 Basophils % 0.1 % (0.0-2.0) 06/16/17 07:30 Sodium 134 mEq/L (136-145) L 06/16/17 07:30 Potassium 3.5 mEq/L (3.5-5.1) 06/16/17 07:30 Chloride 96 mEq/L (98-107) L 06/16/17 07:30 Carbon Dioxide 28.9 mEq/L (21.0-31.0) 06/16/17 07:30 Anion Gap 12.6 (7.0-16.0) 06/16/17 07:30 BUN 29 mg/dL (7-25) H 06/16/17 07:30 Creatinine 3.4 mg/dL (0.7-1.3) H 06/16/17 07:30 Est GFR ( Amer) TNP 06/16/17 07:30 Est GFR (Non-Af Amer) TNP 06/16/17 07:30 BUN/Creatinine Ratio 8.5 06/16/17 07:30 Glucose 109 mg/dL (70-105) H 06/16/17 07:30 POC Glucose 104 MG/DL (70 - 105) 06/16/17 06:09 Hemoglobin A1c % 5.5 % (4.0-6.0) 06/15/17 07:06 Whole Bld Lactic Acid 0.90 mmol/L (0.60-1.99) 06/14/17 15:13 Calcium 8.9 mg/dL (8.6-10.3) 06/16/17 07:30 Phosphorus 3.8 mg/dL (2.5-5.0) 06/14/17 14:00 Magnesium 2.2 mg/dL (1.9-2.7) 06/14/17 14:30 Iron 41 ug/dL (38-169) 06/14/17 15:13 TIBC 183 ug/dL (250-450) L 06/14/17 15:13 Iron Saturation 22 % (15-55) 06/14/17 15:13 Unsaturated IBC 142 ug/dL (111-343) 06/14/17 15:13 Ferritin 1095 ng/mL (30-400) H 06/14/17 15:13 Total Bilirubin 0.5 mg/dL (0.3-1.0) 06/14/17 14:30 Direct Bilirubin 0.16 mg/dL (0.0-0.2) 06/14/17 14:30 AST 11 U/L (13-39) L 06/14/17 14:30 ALT 12 U/L (7-52) 06/14/17 14:30 Alkaline Phosphatase 90 U/L (34-104) 06/14/17 14:30 C-Reactive Protein 1604.0 mg/dL (0.0-0.9) H 06/14/17 14:30 B-Natriuretic Peptide 562.0 pg/mL (5.0-100.0) H 06/14/17 14:30 Total Protein 5.9 gm/dL (6.0-8.3) L 06/14/17 14:30 Albumin 3.2 gm/dL (4.2-5.5) L 06/14/17 14:30 Globulin 2.7 gm/dL 06/14/17 14:30 Albumin/Globulin Ratio 1.2 (1.0-1.8) 06/14/17 14:30 Triglycerides 120 mg/dL (<150) 06/14/17 14:30 Cholesterol 125 mg/dL (<200) 06/14/17 14:30 LDL Cholesterol Direct 66 mg/dL (75-193) L 06/14/17 14:30 HDL Cholesterol 42 mg/dL (23-92) 06/14/17 14:30 Urine Source CATH 06/15/17 09:30 Urine Color YELLOW 06/15/17 09:30 Urine Clarity CLOUDY (CLEAR) 06/15/17 09:30 Urine pH 5.5 (4.6 - 8.0) 06/15/17 09:30 Ur Specific [place] 1.025 (1.005-1.030) 06/15/17 09:30 Urine Protein >=300 mg/dL (NEGATIVE) 06/15/17 09:30 Urine Glucose (UA) NEGATIVE mg/dL (NEGATIVE) 06/15/17 09:30 Urine Ketones NEGATIVE mg/dL (NEGATIVE) 06/15/17 09:30 Urine Blood TRACE (NEGATIVE) 06/15/17 09:30 Urine Nitrate NEGATIVE (NEGATIVE) 06/15/17 09:30 Urine Bilirubin SMALL (NEGATIVE) H 06/15/17 09:30 Urine Urobilinogen 0.2 E.U./dL (0.2 - 1.0) 06/15/17 09:30 Ur Leukocyte Esterase MODERATE (NEGATIVE) H 06/15/17 09:30 Urine RBC 2-5 /hpf (0-5) H 06/15/17 09:30 Urine WBC 25-50 /hpf (0-5) H 06/15/17 09:30 Ur Epithelial Cells FEW /lpf (FEW) 06/15/17 09:30 Uric Acid Crystals FEW /hpf (NONE SEEN) 06/15/17 09:30 Other Crystals FEW /hpf 06/15/17 09:30 Urine Bacteria 2+ /hpf (NONE SEEN) H 06/15/17 09:30 - Physical Exam Vitals and I&O: Vital Signs Temp 97.4 F 06/16/17 07:49 Pulse 78 06/16/17 07:49 Resp 18 06/16/17 08:00 BP 128/71 06/16/17 07:49 Pulse Ox 99 06/16/17 07:49 Intake & Output 06/15/17 06/16/17 06/16/17 18:59 06:59 18:59 Intake Total 150 100 Balance 150 100 Weight (lbs) 71.078 kg Intake: Intake, IV Amount 150 100 Piperacillin Sodium/ 150 100 Tazobact 2.25 gm In Sodium Chloride 0.9% 50 ml @ 100 mls/hr IV Q6HR [facility] Rx#:[id number] Active Medications: Current Medications Acetaminophen (Tylenol) 650 mg PO Q6H PRN PRN Reason: Pain (Moderate) Stop: 08/14/17 15:10 Albuterol Sulfate (Albuterol 2.5mg/3ml Neb Ud) 2.5 mg HHN Q6HR PRN PRN Reason: Shortness of Breath Stop: 08/13/17 17:51 Docusate Sodium (Colace) 100 mg PO BID [facility] Stop: 08/14/17 08:59 Last Admin: 06/16/17 09:48 Dose: 100 mg Duloxetine HCl (Cymbalta) 30 mg PO HS ERIC PRN Reason: Protocol Stop: 08/13/17 20:59 Last Admin: 06/15/17 21:15 Dose: 30 mg Famotidine (Pepcid) 10 mg PO DAILY [facility] Stop: 08/14/17 08:59 Last Admin: 06/16/17 09:49 Dose: 10 mg Heparin Sodium (Porcine) (Heparin) 5,000 units SUBQ Q12H [facility] Stop: 08/13/17 20:59 Last Admin: 06/16/17 09:56 Dose: 5,000 units Piperacillin Sod/Tazobactam (Sod 2.25 gm/ Sodium Chloride) 50 mls @ 100 mls/hr IV Q6HR ER[facility] Stop: 08/14/17 08:29 Last Infusion: 06/16/17 06:15 Dose: Infused Insulin Aspart (Novolog Insulin Sliding Scale) 0 units SUBQ ACHS ERIC PRN Reason: Protocol Stop: 08/14/17 16:29 Last Admin: 06/16/17 06:34 Dose: Not Given Lactulose (Cephulac) 30 gm PO ONCE ONE Stop: 06/16/17 10:09 Lidocaine (Lidoderm 5% Patch) 1 patch TD DAILY@1700 ERIC Stop: 08/14/17 16:59 Last Admin: 06/15/17 18:11 Dose: 1 patch Metoclopramide HCl (Reglan) 5 mg PO TID [facility] Stop: 08/13/17 20:14 Last Admin: 06/16/17 09:48 Dose: 5 mg Miscellaneous (Diclofenac Sodium [Voltaren]) 1 % TP DAILY [facility] Stop: 08/14/17 08:59 Miscellaneous (Zosyn Iv Per Pharmacy) 1 ea [facility] PRN PRN PRN Reason: PROTOCOL Stop: 08/14/17 07:12 Nifedipine (Procardia) 30 mg PO BID [facility] Stop: 08/14/17 08:59 Last Admin: 06/16/17 09:50 Dose: Not Given Ondansetron HCl (Zofran) 4 mg IV Q4H PRN PRN Reason: Nausea / Vomiting Stop: 08/13/17 17:57 Last Admin: 06/15/17 00:17 Dose: 4 mg Pneumococcal Polyvalent Vaccine (Pneumovax) 0.5 ml IM .ONCE ONE Stop: 06/16/17 23:04 Senna (Senna) 17.2 mg PO DAILY [facility] Stop: 08/14/17 08:59 Last Admin: 06/16/17 09:49 Dose: 17.2 mg Sevelamer Carbonate (Renvela) 800 mg PO TID [facility] Stop: 08/13/17 20:59 Last Admin: 06/16/17 09:48 Dose: 800 mg Sulfasalazine (Azulfidine) 500 mg PO BID [facility] Stop: 08/14/17 08:59 Last Admin: 06/16/17 10:03 Dose: 500 mg Vitamin B Complex/Vit C/Folic Acid (Vitamin B Complex W/Vitamin C) 1 tab PO DAILY [facility] Stop: 08/14/17 08:59 Last Admin: 06/16/17 09:49 Dose: 1 tab General: Alert, Cooperative HEENT: Atraumatic, PERRLA Neck: Supple, no JVD Cardiovascular: Regular rate, Normal S1, Normal S2 Lungs: Clear to auscultation Abdomen: Bowel sounds, Distended Extremities: no Clubbing, no Cyanosis, no Edema, no Pulses, no Tender, no Other Assessment/Plan - Problem List Patient Problems: All Active Problems NAUSEA AND VOMITING WITH NO BM (Acute) - Assessment Assessment: Sepsis UTI Severe constipation VMN due to ESRD GI upset Hypokalemia Mod [place] DM GERD Depression - Plan Plan: Continue IV Zosyn. FU on cultures. WBC trending down. Give soap enema and lactulose today. Pt is very constipated. Add miralax as well. Dialysis per [facility]. FU on electrolytes.
[2017-06-16] MEDS ORDERED: Heparin Sodium 1,000 Units/mL Vial IVP ONE (11:29)
[2017-06-16] MEDS: POLYETHYLENE GLYCOL 3350 17 GM PACK PO SCH (11:40)
--- NOTE | 2017-06-16 15:08 | General Progress Note ---
Subjective - Review of Systems Service Date: 06/16/17 Events since last encounter: NO ACUTE EVENTS REMAINS CONSTIPATED, SAYS NO BM X 1 WEEK Subjective: CONSTIPATED Objective - Results Result Diagrams: 06/16/17 07:30 06/16/17 07:30 Recent Labs: Laboratory Last Values WBC 11.4 Th/cmm (4.8-10.8) H D 06/16/17 07:30 RBC 3.46 Mil/cmm (3.80-5.80) L 06/16/17 07:30 Hgb 10.5 gm/dL (12-16) L 06/16/17 07:30 Hct 31.3 % (41.0-60) L 06/16/17 07:30 MCV 90.3 fl (80-99) 06/16/17 07:30 MCH 30.4 pg (27.0-31.0) 06/16/17 07:30 MCHC Differential 33.6 pg (28.0-36.0) 06/16/17 07:30 RDW 15.1 % (11.5-20.0) 06/16/17 07:30 Plt Count 318 Th/cmm (150-400) 06/16/17 07:30 MPV 7.2 fl 06/16/17 07:30 Neutrophils % 60.3 % (40.0-80.0) 06/16/17 07:30 Lymphocytes % 27.1 % (20.0-50.0) 06/16/17 07:30 Monocytes % 9.5 % (2.0-10.0) 06/16/17 07:30 Eosinophils % 3.0 % (0.0-5.0) 06/16/17 07:30 Basophils % 0.1 % (0.0-2.0) 06/16/17 07:30 Sodium 134 mEq/L (136-145) L 06/16/17 07:30 Potassium 3.5 mEq/L (3.5-5.1) 06/16/17 07:30 Chloride 96 mEq/L (98-107) L 06/16/17 07:30 Carbon Dioxide 28.9 mEq/L (21.0-31.0) 06/16/17 07:30 Anion Gap 12.6 (7.0-16.0) 06/16/17 07:30 BUN 29 mg/dL (7-25) H 06/16/17 07:30 Creatinine 3.4 mg/dL (0.7-1.3) H 06/16/17 07:30 Est GFR ( Amer) TNP 06/16/17 07:30 Est GFR (Non-Af Amer) TNP 06/16/17 07:30 BUN/Creatinine Ratio 8.5 06/16/17 07:30 Glucose 109 mg/dL (70-105) H 06/16/17 07:30 POC Glucose 163 MG/DL (70 - 105) H 06/16/17 11:08 Hemoglobin A1c % 5.5 % (4.0-6.0) 06/15/17 07:06 Whole Bld Lactic Acid 0.90 mmol/L (0.60-1.99) 06/14/17 15:13 Calcium 8.9 mg/dL (8.6-10.3) 06/16/17 07:30 Phosphorus 3.8 mg/dL (2.5-5.0) 06/14/17 14:00 Magnesium 2.2 mg/dL (1.9-2.7) 06/14/17 14:30 Iron 41 ug/dL (38-169) 06/14/17 15:13 TIBC 183 ug/dL (250-450) L 06/14/17 15:13 Iron Saturation 22 % (15-55) 06/14/17 15:13 Unsaturated IBC 142 ug/dL (111-343) 06/14/17 15:13 Ferritin 1095 ng/mL (30-400) H 06/14/17 15:13 Total Bilirubin 0.5 mg/dL (0.3-1.0) 06/14/17 14:30 Direct Bilirubin 0.16 mg/dL (0.0-0.2) 06/14/17 14:30 AST 11 U/L (13-39) L 06/14/17 14:30 ALT 12 U/L (7-52) 06/14/17 14:30 Alkaline Phosphatase 90 U/L (34-104) 06/14/17 14:30 C-Reactive Protein 1604.0 mg/dL (0.0-0.9) H 06/14/17 14:30 B-Natriuretic Peptide 562.0 pg/mL (5.0-100.0) H 06/14/17 14:30 Total Protein 5.9 gm/dL (6.0-8.3) L 06/14/17 14:30 Albumin 3.2 gm/dL (4.2-5.5) L 06/14/17 14:30 Globulin 2.7 gm/dL 06/14/17:30 Albumin/Globulin Ratio 1.2 (1.0-1.8) 06/14/17 14:30 Triglycerides 120 mg/dL (<150) 06/14/17 14:30 Cholesterol 125 mg/dL (<200) 06/14/17 14:30 LDL Cholesterol Direct 66 mg/dL (75-193) L 06/14/17 14:30 HDL Cholesterol 42 mg/dL (23-92) 06/14/17 14:30 Urine Source CATH 06/15/17 09:30 Urine Color YELLOW 06/15/17 09:30 Urine Clarity CLOUDY (CLEAR) 06/15/17 09:30 Urine pH 5.5 (4.6 - 8.0) 06/15/17 09:30 Ur Specific [place] 1.025 (1.005-1.030) 06/15/17 09:30 Urine Protein >=300 mg/dL (NEGATIVE) 06/15/17 09:30 Urine Glucose (UA) NEGATIVE mg/dL (NEGATIVE) 06/15/17 09:30 Urine Ketones NEGATIVE mg/dL (NEGATIVE) 06/15/17 09:30 Urine Blood TRACE (NEGATIVE) 06/15/17 09:30 Urine Nitrate NEGATIVE (NEGATIVE) 06/15/17 09:30 Urine Bilirubin SMALL (NEGATIVE) H 06/15/17 09:30 Urine Urobilinogen 0.2 E.U./dL (0.2 - 1.0) 06/15/17 09:30 Ur Leukocyte Esterase MODERATE (NEGATIVE) H 06/15/17 09:30 Urine RBC 2-5 /hpf (0-5) H 06/15/17:30 Urine WBC 25-50 /hpf (0-5) H 06/15/17 09:30 Ur Epithelial Cells FEW /lpf (FEW) 06/15/17 09:30 Uric Acid Crystals FEW /hpf (NONE SEEN) 06/15/17 09:30 Other Crystals FEW /hpf 06/15/17 09:30 Urine Bacteria 2+ /hpf (NONE SEEN) H 06/15/17 09:30 - Physical Exam Vitals and I&O: Vital Signs Temp 97.3 F 06/16/17 12:09 Pulse 66 06/16/17 12:09 Resp 18 06/16/17 12:09 BP 128/62 06/16/17 12:09 Pulse Ox 97 06/16/17 12:09 Intake & Output 06/15/17 06/16/17 06/16/17 18:59 06:59 18:59 Intake Total 150 100 50 Balance 150 100 50 Weight (lbs) 71.078 kg Intake: Intake, IV Amount 150 100 50 Piperacillin Sodium/ 150 100 50 Tazobact 2.25 gm In Sodium Chloride 0.9% 50 ml @ 100 mls/hr IV Q6HR [facility] Rx#:[id number] Active Medications: Current Medications Acetaminophen (Tylenol) 650 mg PO Q6H PRN PRN Reason: Pain (Moderate) Stop: 08/14/17 15:10 Albuterol Sulfate (Albuterol 2.5mg/3ml Neb Ud) 2.5 mg HHN Q6HR PRN PRN Reason: Shortness of Breath Stop: 08/13/17 17:51 Docusate Sodium (Colace) 100 mg PO BID [facility] Stop: 08/14/17 08:59 Last Admin: 06/16/17 09:48 Dose: 100 mg Duloxetine HCl (Cymbalta) 30 mg PO HS ERIC PRN Reason: Protocol Stop: 08/13/17 20:59 Last Admin: 06/15/17 21:15 Dose: 30 mg Famotidine (Pepcid) 10 mg PO DAILY [facility] Stop: 08/14/17 08:59 Last Admin: 06/16/17 09:49 Dose: 10 mg Heparin Sodium (Porcine) (Heparin) 5,000 units SUBQ Q12H [facility] Stop: 08/13/17 20:59 Last Admin: 06/16/17 09:56 Dose: 5,000 units Heparin Sodium (Porcine) (Heparin) 10,000 units IVP ONCE PRN PRN Reason: Dialysis Stop: 08/15/17 11:28 Piperacillin Sod/Tazobactam (Sod 2.25 gm/ Sodium Chloride) 50 mls @ 100 mls/hr IV Q6HR [facility] Stop: 08/14/17 08:29 Last Infusion: 06/16/17 11:50 Dose: Infused Insulin Aspart (Novolog Insulin Sliding Scale) 0 units SUBQ ACHS ERIC PRN Reason: Protocol Stop: 08/14/17 16:29 Last Admin: 06/16/17 11:15 Dose: 2 units Lidocaine (Lidoderm 5% Patch) 1 patch TD DAILY@1700 ERIC Stop: 08/14/17 16:59 Last Admin: 06/15/17 18:11 Dose: 1 patch Metoclopramide HCl (Reglan) 5 mg PO TID ERIC Stop: 08/13/17 20:14 Last Admin: 06/16/17 09:48 Dose: 5 mg Miscellaneous (Diclofenac Sodium [Voltaren]) 1 % TP DAILY [facility] Stop: 08/14/17 08:59 Miscellaneous (Zosyn Iv Per Pharmacy) 1 ea [facility] PRN PRN PRN Reason: PROTOCOL Stop: 08/14/17 07:12 Nifedipine (Procardia) 30 mg PO BID [facility] Stop: 08/14/17 08:59 Last Admin: 06/16/17 09:50 Dose: Not Given Ondansetron HCl (Zofran) 4 mg IV Q4H PRN PRN Reason: Nausea / Vomiting Stop: 08/13/17 17:57 Last Admin: 06/15/17 00:17 Dose: 4 mg Pneumococcal Polyvalent Vaccine (Pneumovax) 0.5 ml IM .ONCE ONE Stop: 06/16/17 23:04 Polyethylene Glycol (Miralax) 17 gm PO DAILY ERIC Stop: 08/15/17 10:14 Last Admin: 06/16/17 11:40 Dose: 17 gm Senna (Senna) 17.2 mg PO DAILY ERIC Stop: 08/14/17 08:59 Last Admin: 06/16/17 09:49 Dose: 17.2 mg Sevelamer Carbonate (Renvela) 800 mg PO TID ERIC Stop: 08/13/17 20:59 Last Admin: 06/16/17 09:48 Dose: 800 mg Sulfasalazine (Azulfidine) 500 mg PO BID ERIC Stop: 08/14/17 08:59 Last Admin: 06/16/17 10:03 Dose: 500 mg Vitamin B Complex/Vit C/Folic Acid (Vitamin B Complex W/Vitamin C) 1 tab PO DAILY ERIC Stop: 08/14/17 08:59 Last Admin: 06/16/17 09:49 Dose: 1 tab General: Alert, Oriented x3, Cooperative HEENT: Atraumatic, PERRLA, Other (RT CHEST PERMACATH) Neck: Supple, no JVD Cardiovascular: Regular rate, Normal S1, Normal S2 Lungs: Clear to auscultation Abdomen: Bowel sounds, Distended Extremities: no Clubbing, no Cyanosis, no Edema, no Pulses, no Tender, no Other Assessment/Plan - Problem List Patient Problems: All Active Problems NAUSEA AND VOMITING WITH NO BM (Acute) - Assessment Assessment: 1. 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 STABLE. FOR HD TODAY, NEXT DIALYSIS.OUTPATIENT DIALYSIS IS AT [facility] 2. ANEMIA OF ESRD, STABLE. START EPOGEN. 3. CONSTIPATION, PERSISTENT. PT TO RECEIVE ENEMA TODAY. 4. TYPE 2 DM WITH RENAL MANIF. STABLE. CONT CURRENT MX 5. HTN, STABLE. CONT CURRENT MX 6. UTI, STABLE. CONT IV ABX D/W RN D/W HD RN D/W PT AND SEEN ON HD - Plan Plan: SEE ABOVE
[2017-06-16] MEDS: Lidocaine 5% Patch TD SCH (18:24)
[2017-06-16] MEDS ORDERED: Pneumococcal Vaccine 0.5 mL Vial IM ONE (23:03)
[2017-06-17] MEDS: Piperacillin/Tazobact 2.25 gm in 0.9% NS 50 ML IV SCH ×3 (01:17→12:17)
[2017-06-17] MEDS: INSULIN ASPART SLIDING SCALE 100 UNITS/ML UNIT SUBQ SCH ×2 (06:32→12:14)
[2017-06-17 07:04] LABS: % BASOPHILS 0.3 % (0.0-2.0); % EOSINOPHILS 2.7 % (0.0-5.0); % LYMPHOCYTES 34.9 % (20.0-50.0); % MONOCYTES 9.8 % (2.0-10.0); % NEUTROPHILS 52.3 % (40.0-80.0); EOSINOPHILE ABSOLUTE 0.3 Th/cmm (0.1-0.4); HEMATOCRIT 29.9 % (41.0-60); HEMOGLOBIN 10.3 gm/dL (12-16); LYMPHOCYTE ABSOLUTE 3.4 Th/cmm (1.5-3.0); MEAN CELL VOLUME 89.5 fl (80-99); MEAN CORPUSCULAR HEMOGLOBIN 30.7 pg (27.0-31.0); MEAN CORPUSCULAR HGB CONC 34.3 pg (28.0-36.0); NEUTROPHILE ABSOLUTE 5.1 Th/cmm (1.8-8.0); PLATELET COUNT 338 Th/cmm (150-400); RED BLOOD COUNT 3.35 Mil/cmm (3.80-5.80); RED CELL DISTRIBUTION WIDTH 15.3 % (11.5-20.0); WHITE BLOOD COUNT 9.8 Th/cmm (4.8-10.8)
[2017-06-17 07:31] LABS: ANION GAP 10.7 (7.0-16.0); BUN - UREA NITROGEN 21 mg/dL (7-25); CALCIUM SERUM 8.7 mg/dL (8.6-10.3); CARBON DIOXIDE 28.5 mEq/L (21.0-31.0); CHLORIDE 96 mEq/L (98-107); CREATININE - SERUM 2.8 mg/dL (0.7-1.3); GLUCOSE 110 mg/dL (70-105); POTASSIUM SERUM 3.2 mEq/L (3.5-5.1); SODIUM SERUM 132 mEq/L (136-145)
[2017-06-17] MEDS: POLYETHYLENE GLYCOL 3350 17 GM PACK PO SCH (09:44)
[2017-06-17] MEDS: Multivitamin w/ Minerals Tab PO SCH (09:48)
[2017-06-17] MEDS: Vitamin B Complex w/Vitamin C Tab PO SCH (09:48)
--- NOTE | 2017-06-17 10:06 | General Progress Note ---
Subjective - Review of Systems Service Date: 06/17/17 Subjective: Pt seen and eval. In bed. Weak. No n,v,d or cp. On Zosyn. Met with . Pt is more awake and alert today. Status post dialysis. WBC trending down. had a large BM this am. No fevers or chills. Objective - Results Result Diagrams: 06/17/17 06:36 06/17/17 06:36 Recent Labs: Laboratory Last Values WBC 9.8 Th/cmm (4.8-10.8) 06/17/17 06:36 RBC 3.35 Mil/cmm (3.80-5.80) L 06/17/17 06:36 Hgb 10.3 gm/dL (12-16) L 06/17/17 06:36 Hct 29.9 % (41.0-60) L 06/17/17 06:36 MCV 89.5 fl (80-99) 06/17/17 06:36 MCH 30.7 pg (27.0-31.0) 06/17/17 06:36 MCHC Differential 34.3 pg (28.0-36.0) 06/17/17 06:36 RDW 15.3 % (11.5-20.0) 06/17/17 06:36 Plt Count 338 Th/cmm (150-400) 06/17/17 06:36 MPV 7.0 fl 06/17/17 06:36 Neutrophils % 52.3 % (40.0-80.0) 06/17/17 06:36 Lymphocytes % 34.9 % (20.0-50.0) 06/17/17 06:36 Monocytes % 9.8 % (2.0-10.0) 06/17/17 06:36 Eosinophils % 2.7 % (0.0-5.0) 06/17/17 06:36 Basophils % 0.3 % (0.0-2.0) 06/17/17 06:36 Sodium 132 mEq/L (136-145) L 06/17/17 06:36 Potassium 3.2 mEq/L (3.5-5.1) L 06/17/17 06:36 Chloride 96 mEq/L (98-107) L 06/17/17 06:36 Carbon Dioxide 28.5 mEq/L (21.0-31.0) 06/17/17 06:36 Anion Gap 10.7 (7.0-16.0) 06/17/17 06:36 BUN 21 mg/dL (7-25) 06/17/17 06:36 Creatinine 2.8 mg/dL (0.7-1.3) H 06/17/17 06:36 Est GFR ( Amer) TNP 06/17/17 06:36 Est GFR (Non-Af Amer) TNP 06/17/17 06:36 BUN/Creatinine Ratio 7.5 06/17/17 06:36 Glucose 110 mg/dL (70-105) H 06/17/17 06:36 POC Glucose 98 MG/DL (70 - 105) 06/17/17 06:08 Hemoglobin A1c % 5.5 % (4.0-6.0) 06/15/17 07:06 Whole Bld Lactic Acid 0.90 mmol/L (0.60-1.99) 06/14/17 15:13 Calcium 8.7 mg/dL (8.6-10.3) 06/17/17 06:36 Phosphorus 3.8 mg/dL (2.5-5.0) 06/14/17 14:00 Magnesium 2.2 mg/dL (1.9-2.7) 06/14/17 14:30 Iron 41 ug/dL (38-169) 06/14/17 15:13 TIBC 183 ug/dL (250-450) L 06/14/17 15:13 Iron Saturation 22 % (15-55) 06/14/17 15:13 Unsaturated IBC 142 ug/dL (111-343) 06/14/17 15:13 Ferritin 1095 ng/mL (30-400) H 06/14/17 15:13 Total Bilirubin 0.5 mg/dL (0.3-1.0) 06/14/17 14:30 Direct Bilirubin 0.16 mg/dL (0.0-0.2) 06/14/17 14:30 AST 11 U/L (13-39) L 06/14/17 14:30 ALT 12 U/L (7-52) 06/14/17 14:30 Alkaline Phosphatase 90 U/L (34-104) 06/14/17 14:30 C-Reactive Protein 1604.0 mg/dL (0.0-0.9) H 06/14/17 14:30 B-Natriuretic Peptide 562.0 pg/mL (5.0-100.0) H 06/14/17 14:30 Total Protein 5.9 gm/dL (6.0-8.3) L 06/14/17 14:30 Albumin 3.2 gm/dL (4.2-5.5) L 06/14/17 14:30 Globulin 2.7 gm/dL 06/14/17 14:30 Albumin/Globulin Ratio 1.2 (1.0-1.8) 06/14/17 14:30 Triglycerides 120 mg/dL (<150) 06/14/17 14:30 Cholesterol 125 mg/dL (<200) 06/14/17 14:30 LDL Cholesterol Direct 66 mg/dL (75-193) L 06/14/17 14:30 HDL Cholesterol 42 mg/dL (23-92) 06/14/17 14:30 Urine Source CATH 06/15/17 09:30 Urine Color YELLOW 06/15/17 09:30 Urine Clarity CLOUDY (CLEAR) 06/15/17 09:30 Urine pH 5.5 (4.6 - 8.0) 06/15/17 09:30 Ur Specific [place] 1.025 (1.005-1.030) 06/15/17 09:30 Urine Protein >=300 mg/dL (NEGATIVE) 06/15/17 09:30 Urine Glucose (UA) NEGATIVE mg/dL (NEGATIVE) 06/15/17 09:30 Urine Ketones NEGATIVE mg/dL (NEGATIVE) 06/15/17 09:30 Urine Blood TRACE (NEGATIVE) 06/15/17 09:30 Urine Nitrate NEGATIVE (NEGATIVE) 06/15/17 09:30 Urine Bilirubin SMALL (NEGATIVE) H 06/15/17 09:30 Urine Urobilinogen 0.2 E.U./dL (0.2 - 1.0) 06/15/17 09:30 Ur Leukocyte Esterase MODERATE (NEGATIVE) H 06/15/17 09:30 Urine RBC 2-5 /hpf (0-5) H 06/15/17 09:30 Urine WBC 25-50 /hpf (0-5) H 06/15/17 09:30 Ur Epithelial Cells FEW /lpf (FEW) 06/15/17 09:30 Uric Acid Crystals FEW /hpf (NONE SEEN) 06/15/17 09:30 Other Crystals FEW /hpf 06/15/17 09:30 Urine Bacteria 2+ /hpf (NONE SEEN) H 06/15/17 09:30 - Physical Exam Vitals and I&O: Vital Signs Temp 96.8 F 06/17/17 04:00 Pulse 74 06/17/17 09:49 Resp 18 06/17/17 04:00 BP 137/75 06/17/17 09:49 Pulse Ox 96 06/17/17 04:00 Intake & Output 06/16/17 06/17/17 06/17/17 18:59 06:59 18:59 Intake Total 100 50 Balance 100 50 Weight (lbs) 90.945 kg Intake: Intake, IV Amount 100 50 Piperacillin Sodium/ 100 50 Tazobact 2.25 gm In Sodium Chloride 0.9% 50 ml @ 100 mls/hr IV Q6HR [facility] Rx#:[id number] Other: # Voids 1 Active Medications: Current Medications Acetaminophen (Tylenol) 650 mg PO Q6H PRN PRN Reason: Pain (Moderate) Stop: 08/14/17 15:10 Albuterol Sulfate (Albuterol 2.5mg/3ml Neb Ud) 2.5 mg HHN Q6HR PRN PRN Reason: Shortness of Breath Stop: 08/13/17 17:51 Docusate Sodium (Colace) 100 mg PO BID [facility] Stop: 08/14/17 08:59 Last Admin: 06/17/17 09:49 Dose: 100 mg Duloxetine HCl (Cymbalta) 30 mg PO HS [facility] PRN Reason: Protocol Stop: 08/13/17 20:59 Last Admin: 06/16/17 22:12 Dose: 30 mg Famotidine (Pepcid) 10 mg PO DAILY [facility] Stop: 08/14/17 08:59 Last Admin: 06/17/17 09:49 Dose: 10 mg Heparin Sodium (Porcine) (Heparin) 5,000 units SUBQ Q12H [facility] Stop: 08/13/17 20:59 Last Admin: 06/16/17 09:56 Dose: 5,000 units Piperacillin Sod/Tazobactam (Sod 2.25 gm/ Sodium Chloride) 50 mls @ 100 mls/hr IV Q6HR [facility] Stop: 08/14/17 08:29 Last Admin: 06/17/17 05:08 Dose: 100 mls/hr Insulin Aspart (Novolog Insulin Sliding Scale) 0 units SUBQ ACHS ERIC PRN Reason: Protocol Stop: 08/14/17 16:29 Last Admin: 06/17/17 06:32 Dose: Not Given Lidocaine (Lidoderm 5% Patch) 1 patch TD DAILY@1700 ERIC Stop: 08/14/17 16:59 Last Admin: 06/16/17 18:24 Dose: 1 patch Metoclopramide HCl (Reglan) 5 mg PO TID ERIC Stop: 08/13/17 20:14 Last Admin: 06/17/17 09:48 Dose: 5 mg Miscellaneous (Diclofenac Sodium [Voltaren]) 1 % TP DAILY ERIC Stop: 08/14/17 08:59 Miscellaneous (Zosyn Iv Per Pharmacy) 1 ea MC PRN PRN PRN Reason: PROTOCOL Stop: 08/14/17 07:12 Nifedipine (Procardia) 30 mg PO BID ERIC Stop: 08/14/17 08:59 Last Admin: 06/17/17 09:49 Dose: 30 mg Ondansetron HCl (Zofran) 4 mg IV Q4H PRN PRN Reason: Nausea / Vomiting Stop: 08/13/17 17:57 Last Admin: 06/15/17 00:17 Dose: 4 mg Polyethylene Glycol (Miralax) 17 gm PO DAILY ER[facility] Stop: 08/15/17 10:14 Last Admin: 06/17/17 09:44 Dose: 17 gm Senna (Senna) 17.2 mg PO DAILY [facility] Stop: 08/14/17 08:59 Last Admin: 06/17/17 09:48 Dose: 17.2 mg Sevelamer Carbonate (Renvela) 800 mg PO TID ERIC Stop: 08/13/17 20:59 Last Admin: 06/17/17 09:48 Dose: 800 mg Sulfasalazine (Azulfidine) 500 mg PO BID ER[facility] Stop: 08/14/17 08:59 Last Admin: 06/16/17 18:24 Dose: 500 mg Vitamin B Complex/Vit C/Folic Acid (Vitamin B Complex W/Vitamin C) 1 tab PO DAILY ER[facility] Stop: 08/14/17 08:59 Last Admin: 06/17/17 09:48 Dose: 1 tab General: Alert, Cooperative HEENT: Atraumatic, PERRLA, Other (RT CHEST PERMACATH) Neck: Supple, no JVD Cardiovascular: Regular rate, Normal S1, Normal S2 Lungs: Clear to auscultation Abdomen: Bowel sounds, Soft Extremities: no Clubbing, no Cyanosis, no Edema, no Pulses, no Tender, no Other Assessment/Plan - Problem List Patient Problems: All Active Problems NAUSEA AND VOMITING WITH NO BM (Acute) - Assessment Assessment: Sepsis UTI Severe constipation VMN due to ESRD GI upset Hypokalemia Mod [place] DM GERD Depression - Plan Plan: Continue IV Zosyn. FU on cultures. WBC trending down. Gave soap enema and lactulose on 06/16/17. Pt had a large bm and is feeling better. Add miralax as well. Dialysis per Nephro. FU on electrolytes. Nutritional Asmnt/Malnutr-PDOC - Dietary Evaluation Malnutrition Findings (Please click <Entered> for more info): Nutritional Asmnt/Malnutrition Start: 06/16/17 16: 34 Text: Status: Complete Freq: Document 06/16/17 16:34 LCHENG (Rec: 06/16/17 16:50 LCHENG [email or web address]) Nutritional Asmnt/Malnutrition Patient General Information Nutritional Screening High Risk Consult Diagnosis UTI Pertinent Medical Hx/Surgical Hx depression, dysphagia, ESRD, malnutrition DM, GERD Subjective Information Consult received for wounds. Pt seen resting in bed, having HD at the time of visit. Family at bedside, not Afghan speaking. Spoke with RN, pt eats ok, no chewing or swallowing problem. Per ntoes, PO intake 25-50% on 06/15. Current Diet Order/ Nutrition Support Renal Pertinent Medications novolog, reglan, piperacillin, miralax, renvela, vitamin B complex/vit C/folic acid Pertinent Labs 06/16 Na 134, K 3.5, Cl 96, BUN 29, Cr 3.4, Glucose, 109, POC 104-163 06/15 A1c 5.5 Nutritional Hx/Data Height 1.73 m Height (Calculated Centimeters) 172.7 Current Weight (lbs) 71.078 kg Weight (Calculated Kilograms) 71.1 Weight (Calculated Grams) 05512.9 [place] Body Weight 154 % [place] Body Weight 102 Body Mass Index (BMI) 23.8 Weight Status Approriate GI Symptoms Skin Integrity/Comment: ulcer in sacral, AND SKIN TEAR ON BOTH HANDS Estimated Nutritional Goals BEE in Kcals: Using Current wt Calories/Kcals/Kg 25-30 Kcals Calculated 6329-0833 Protein: Using Current wt Protein g/k-1.2 Protein Calculated 71-85 Fluid: ml per MD order d/t dialysis Nutritional Problem 2. Problem Problem increased nutrition needs ( protein) Etiology dialysis losses, increased metabolic demand for wound healing Signs/Symptoms: pt on HD, ulcer in sacral 1. Problem Problem altered nutrition related nutrition labs Etiology ESRD Signs/Symptoms: BUN 29, Cr 3.4 Intervention/Recommendation Comments 1. Continue with current diet as ordered. Recommend Novasource Renal BID to increase protein intake. 2. Monitor PO intake, wt, labs and skin integrity 3. F/U as moderate risk in 3-5 days, 06/19-06/21, PO check Expected Outcomes/Goals Expected Outcomes/Goals 1. PO intake to meet at least 75% of nutritional needs. 2. Wt stability, skin to remain intact, labs to improve
--- NOTE | 2017-06-17 11:49 | General Progress Note ---
Subjective - Review of Systems Service Date: 06/17/17 Subjective: Denies complaints, constipation better w/ enema Objective - Results Result Diagrams: 06/17/17 06:36 06/17/17 06:36 Recent Labs: Laboratory Last Values WBC 9.8 Th/cmm (4.8-10.8) 06/17/17 06:36 RBC 3.35 Mil/cmm (3.80-5.80) L 06/17/17 06:36 Hgb 10.3 gm/dL (12-16) L 06/17/17 06:36 Hct 29.9 % (41.0-60) L 06/17/17 06:36 MCV 89.5 fl (80-99) 06/17/17 06:36 MCH 30.7 pg (27.0-31.0) 06/17/17 06:36 MCHC Differential 34.3 pg (28.0-36.0) 06/17/17 06:36 RDW 15.3 % (11.5-20.0) 06/17/17 06:36 Plt Count 338 Th/cmm (150-400) 06/17/17 06:36 MPV 7.0 fl 06/17/17 06:36 Neutrophils % 52.3 % (40.0-80.0) 06/17/17 06:36 Lymphocytes % 34.9 % (20.0-50.0) 06/17/17 06:36 Monocytes % 9.8 % (2.0-10.0) 06/17/17 06:36 Eosinophils % 2.7 % (0.0-5.0) 06/17/17 06:36 Basophils % 0.3 % (0.0-2.0) 06/17/17 06:36 Sodium 132 mEq/L (136-145) L 06/17/17 06:36 Potassium 3.2 mEq/L (3.5-5.1) L 06/17/17 06:36 Chloride 96 mEq/L (98-107) L 06/17/17 06:36 Carbon Dioxide 28.5 mEq/L (21.0-31.0) 06/17/17 06:36 Anion Gap 10.7 (7.0-16.0) 06/17/17 06:36 BUN 21 mg/dL (7-25) 06/17/17 06:36 Creatinine 2.8 mg/dL (0.7-1.3) H 06/17/17 06:36 Est GFR ( Amer) TNP 06/17/17 06:36 Est GFR (Non-Af Amer) TNP 06/17/17 06:36 BUN/Creatinine Ratio 7.5 06/17/17 06:36 Glucose 110 mg/dL (70-105) H 06/17/17 06:36 POC Glucose 98 MG/DL (70 - 105) 06/17/17 06:08 Hemoglobin A1c % 5.5 % (4.0-6.0) 06/15/17 07:06 Whole Bld Lactic Acid 0.90 mmol/L (0.60-1.99) 06/14/17 15:13 Calcium 8.7 mg/dL (8.6-10.3) 06/17/17 06:36 Phosphorus 3.8 mg/dL (2.5-5.0) 06/14/17 14:00 Magnesium 2.2 mg/dL (1.9-2.7) 06/14/17 14:30 Iron 41 ug/dL (38-169) 06/14/17 15:13 TIBC 183 ug/dL (250-450) L 06/14/17 15:13 Iron Saturation 22 % (15-55) 06/14/17 15:13 Unsaturated IBC 142 ug/dL (111-343) 06/14/17 15:13 Ferritin 1095 ng/mL (30-400) H 06/14/17 15:13 Total Bilirubin 0.5 mg/dL (0.3-1.0) 06/14/17 14:30 Direct Bilirubin 0.16 mg/dL (0.0-0.2) 06/14/17 14:30 AST 11 U/L (13-39) L 06/14/17 14:30 ALT 12 U/L (7-52) 06/14/17 14:30 Alkaline Phosphatase 90 U/L (34-104) 06/14/17 14:30 C-Reactive Protein 1604.0 mg/dL (0.0-0.9) H 06/14/17 14:30 B-Natriuretic Peptide 562.0 pg/mL (5.0-100.0) H 06/14/17 14:30 Total Protein 5.9 gm/dL (6.0-8.3) L 06/14/17 14:30 Albumin 3.2 gm/dL (4.2-5.5) L 06/14/17 14:30 Globulin 2.7 gm/dL 06/14/17 14:30 Albumin/Globulin Ratio 1.2 (1.0-1.8) 06/14/17 14:30 Triglycerides 120 mg/dL (<150) 06/14/17 14:30 Cholesterol 125 mg/dL (<200) 06/14/17 14:30 LDL Cholesterol Direct 66 mg/dL (75-193) L 06/14/17 14:30 HDL Cholesterol 42 mg/dL (23-92) 06/14/17 14:30 Urine Source CATH 06/15/17 09:30 Urine Color YELLOW 06/15/17 09:30 Urine Clarity CLOUDY (CLEAR) 06/15/17 09:30 Urine pH 5.5 (4.6 - 8.0) 06/15/17 09:30 Ur Specific [place] 1.025 (1.005-1.030) 06/15/17 09:30 Urine Protein >=300 mg/dL (NEGATIVE) 06/15/17 09:30 Urine Glucose (UA) NEGATIVE mg/dL (NEGATIVE) 06/15/17:30 Urine Ketones NEGATIVE mg/dL (NEGATIVE) 06/15/17 09:30 Urine Blood TRACE (NEGATIVE) 06/15/17 09:30 Urine Nitrate NEGATIVE (NEGATIVE) 06/15/17 09:30 Urine Bilirubin SMALL (NEGATIVE) H 06/15/17 09:30 Urine Urobilinogen 0.2 E.U./dL (0.2 - 1.0) 06/15/17 09:30 Ur Leukocyte Esterase MODERATE (NEGATIVE) H 06/15/17 09:30 Urine RBC 2-5 /hpf (0-5) H 06/15/17:30 Urine WBC 25-50 /hpf (0-5) H 06/15/17 09:30 Ur Epithelial Cells FEW /lpf (FEW) 06/15/17 09:30 Uric Acid Crystals FEW /hpf (NONE SEEN) 06/15/17 09:30 Other Crystals FEW /hpf 06/15/17 09:30 Urine Bacteria 2+ /hpf (NONE SEEN) H 06/15/17 09:30 - Physical Exam Vitals and I&O: Vital Signs Temp 96.8 F 06/17/17 04:00 Pulse 74 06/17/17 09:49 Resp 18 06/17/17 04:00 BP 137/75 06/17/17 09:49 Pulse Ox 96 06/17/17 04:00 Intake & Output 06/16/17 06/17/17 06/17/17 18:59 06:59 18:59 Intake Total 100 50 Balance 100 50 Weight (lbs) 90.945 kg Intake: Intake, IV Amount 100 50 Piperacillin Sodium/ 100 50 Tazobact 2.25 gm In Sodium Chloride 0.9% 50 ml @ 100 mls/hr IV Q6HR [facility] Rx#:[id number] Other: # Voids 1 Active Medications: Current Medications Acetaminophen (Tylenol) 650 mg PO Q6H PRN PRN Reason: Pain (Moderate) Stop: 08/14/17 15:10 Albuterol Sulfate (Albuterol 2.5mg/3ml Neb Ud) 2.5 mg HHN Q6HR PRN PRN Reason: Shortness of Breath Stop: 08/13/17 17:51 Docusate Sodium (Colace) 100 mg PO BID [facility] Stop: 08/14/17 08:59 Last Admin: 06/17/17 09:49 Dose: 100 mg Duloxetine HCl (Cymbalta) 30 mg PO HS [facility] PRN Reason: Protocol Stop: 08/13/17 20:59 Last Admin: 06/16/17 22:12 Dose: 30 mg Famotidine (Pepcid) 10 mg PO DAILY [facility] Stop: 08/14/17 08:59 Last Admin: 06/17/17 09:49 Dose: 10 mg Heparin Sodium (Porcine) (Heparin) 5,000 units SUBQ Q12H [facility] Stop: 08/13/17 20:59 Last Admin: 06/17/17 09:52 Dose: 5,000 units Piperacillin Sod/Tazobactam (Sod 2.25 gm/ Sodium Chloride) 50 mls @ 100 mls/hr IV Q6HR [facility] Stop: 08/14/17 08:29 Last Admin: 06/17/17 05:08 Dose: 100 mls/hr Insulin Aspart (Novolog Insulin Sliding Scale) 0 units SUBQ ACHS [facility] PRN Reason: Protocol Stop: 08/14/17 16:29 Last Admin: 06/17/17 06:32 Dose: Not Given Lidocaine (Lidoderm 5% Patch) 1 patch TD DAILY@1700 ER[facility] Stop: 08/14/17 16:59 Last Admin: 06/16/17 18:24 Dose: 1 patch Metoclopramide HCl (Reglan) 5 mg PO TID [facility] Stop: 08/13/17 20:14 Last Admin: 06/17/17 09:48 Dose: 5 mg Miscellaneous (Diclofenac Sodium [Voltaren]) 1 % TP DAILY [facility] Stop: 08/14/17 08:59 Miscellaneous (Zosyn Iv Per Pharmacy) 1 ea MC PRN PRN PRN Reason: PROTOCOL Stop: 08/14/17 07:12 Nifedipine (Procardia) 30 mg PO BID [facility] Stop: 08/14/17 08:59 Last Admin: 06/17/17 09:49 Dose: 30 mg Ondansetron HCl (Zofran) 4 mg IV Q4H PRN PRN Reason: Nausea / Vomiting Stop: 08/13/17 17:57 Last Admin: 06/15/17 00:17 Dose: 4 mg Polyethylene Glycol (Miralax) 17 gm PO DAILY [facility] Stop: 08/15/17 10:14 Last Admin: 06/17/17 09:44 Dose: 17 gm Senna (Senna) 17.2 mg PO DAILY [facility] Stop: 08/14/17 08:59 Last Admin: 06/17/17 09:48 Dose: 17.2 mg Sevelamer Carbonate (Renvela) 800 mg PO TID [facility] Stop: 08/13/17 20:59 Last Admin: 06/17/17 09:48 Dose: 800 mg Sulfasalazine (Azulfidine) 500 mg PO BID [facility] Stop: 08/14/17 08:59 Last Admin: 06/16/17 18:24 Dose: 500 mg Vitamin B Complex/Vit C/Folic Acid (Vitamin B Complex W/Vitamin C) 1 tab PO DAILY [facility] Stop: 08/14/17 08:59 Last Admin: 06/17/17 09:48 Dose: 1 tab General: Alert, Cooperative HEENT: Atraumatic, PERRLA, Other (RT CHEST PERMACATH) Neck: Supple, no JVD Cardiovascular: Regular rate, Normal S1, Normal S2 Lungs: Clear to auscultation Abdomen: Bowel sounds, Soft Extremities: no Clubbing, no Cyanosis, no Edema, no Pulses, no Tender, no Other Assessment/Plan - Problem List Patient Problems: All Active Problems NAUSEA AND VOMITING WITH NO BM (Acute) - Assessment Assessment: ESRD on HD, MWF BP controlled on HD H&H in range, continue [place] renal dosing antimicrobials Nutritional Asmnt/Malnutr-PDOC - Dietary Evaluation Malnutrition Findings (Please click <Entered> for more info): Nutritional Asmnt/Malnutrition Start: 06/16/17 16: 34 Text: Status: Complete Freq: Document 06/16/17 16:34 NABIL (Rec: 06/16/17 16:50 HEN [email or web address]) Nutritional Asmnt/Malnutrition Patient General Information Nutritional Screening High Risk Consult Diagnosis UTI Pertinent Medical Hx/Surgical Hx depression, dysphagia, ESRD, malnutrition DM, GERD Subjective Information Consult received for wounds. Pt seen resting in bed, having HD at the time of visit. Family at bedside, not [place]ic speaking. Spoke with RN, pt eats ok, no chewing or swallowing problem. Per ntoes, PO intake 25-50% on 06/15. Current Diet Order/ Nutrition Support Renal Pertinent Medications novolog, reglan, piperacillin, miralax, renvela, vitamin B complex/vit C/folic acid Pertinent Labs 06/16 Na 134, K 3.5, Cl 96, BUN 29, Cr 3.4, Glucose, 109, POC 104-163 06/15 A1c 5.5 Nutritional Hx/Data Height 1.73 m Height (Calculated Centimeters) 172.7 Current Weight (lbs) 71.078 kg Weight (Calculated Kilograms) 71.1 Weight (Calculated Grams) 11850.9 [place] Body Weight 154 % [place] Body Weight 102 Body Mass Index (BMI) 23.8 Weight Status Approriate GI Symptoms Skin Integrity/Comment: ulcer in sacral, AND SKIN TEAR ON BOTH HANDS Estimated Nutritional Goals BEE in Kcals: Using Current wt Calories/Kcals/Kg 25-30 Kcals Calculated 1202-2208 Protein: Using Current wt Protein g/k-1.2 Protein Calculated 71-85 Fluid: ml per MD order d/t dialysis Nutritional Problem 2. Problem Problem increased nutrition needs ( protein) Etiology dialysis losses, increased metabolic demand for wound healing Signs/Symptoms: pt on HD, ulcer in sacral 1. Problem Problem altered nutrition related nutrition labs Etiology ESRD Signs/Symptoms: BUN 29, Cr 3.4 Intervention/Recommendation Comments 1. Continue with current diet as ordered. Recommend Novasource Renal BID to increase protein intake. 2. Monitor PO intake, wt, labs and skin integrity 3. F/U as moderate risk in 3-5 days, 06/19-06/21, PO check Expected Outcomes/Goals Expected Outcomes/Goals 1. PO intake to meet at least 75% of nutritional needs. 2. Wt stability, skin to remain intact, labs to improve
[2017-06-18] MEDS ORDERED: Epoetin Alfa 20000 Units/mL Vial SUBQ SCH (11:50)
--- NOTE | 2017-06-18 19:27 | Discharge Summary ---
DATE OF DISCHARGE: 06/17/2017 CAUSE OF ADMISSION: The patient is an 82-year-old male who is a patient of mine at [facility]. He is a dialysis patient. The patient presented to the hospital complaining of nausea, vomiting, abdominal pain and some fevers as well. He was found to have sepsis and admitted for further workup and treatment. ADMITTING DIAGNOSES: 1. Sepsis. 2. End-stage renal disease. 3. Urinary tract infection. 4. Gastrointestinal upset. 5. Dysphagia. 6. Vasomotor nephropathy. 7. Hypokalemia. 8. Moderate malnutrition. 9. Diabetes mellitus. 10. Gastroesophageal reflux disease. 11. Depression. DISCHARGE DIAGNOSES: 1. Sepsis. 2. End-stage renal disease. 3. Urinary tract infection. 4. Gastrointestinal upset. 5. Dysphagia. 6. Vasomotor nephropathy. 7. Hypokalemia. 8. Moderate malnutrition. 9. Diabetes mellitus. 10. Gastroesophageal reflux disease. 11. Depression. SUMMARY OF HOSPITAL COURSE: The patient was found to have UTI, was treated with IV Zosyn. His white count decreased. He was also severely constipated. He was given several laxatives and he had a very large bowel movement. He started to feel better. He was dialyzed. Dr. Huff's group saw the patient. PROGNOSIS: Fair. ACTIVITY: As tolerated. DISPOSITION: He was discharged back to alf facility. Physical exam and labs as charted. CONSULTS: Dr. Pulido for Nephrology. PROCEDURES: None. MEDICATIONS: All medications reviewed and reconciled. I changed the Zosyn to p.o. Levaquin only 250 mg for 3 more days and we discussed the care plan with the alf facility as well. JOB# [id number]
== END 2017-06-17 17:40 | disposition home or self-care (01) | DRG 871 ==
LOC: ER 12:21 → MSI 16:30
PROVIDERS: ADMIT Family Medicine; ATTEND Family Medicine
PROC: 5A1D70Z Performance of Urinary Filtration, Intermittent, Less than 6 Hours Per Day (ICD-10-PCS; principal; 2017-06-14)
PROC: 5A1D70Z Performance of Urinary Filtration, Intermittent, Less than 6 Hours Per Day (ICD-10-PCS; 2017-06-16)
DX: A41.9 Sepsis, unspecified organism (principal); N17.0 Acute kidney failure with tubular necrosis; E44.0 Moderate protein-calorie malnutrition; L89.153 Pressure ulcer of sacral region, stage 3; E11.22 Type 2 diabetes mellitus with diabetic chronic kidney disease; R13.10 Dysphagia, unspecified; L89.621 Pressure ulcer of left heel, stage 1; I12.0 Hypertensive chronic kidney disease with stage 5 chronic kidney disease or end stage renal disease; Z93.1 Gastrostomy status; N18.6 End stage renal disease; N39.0 Urinary tract infection, site not specified; Z99.2 Dependence on renal dialysis; E87.6 Hypokalemia; K21.9 Gastro-esophageal reflux disease without esophagitis; K30 Functional dyspepsia; D63.1 Anemia in chronic kidney disease; K59.00 Constipation, unspecified; F32.9 Major depressive disorder, single episode, unspecified; Z88.6 Allergy status to analgesic agent; Z88.5 Allergy status to narcotic agent; Z68.30 Body mass index [BMI] 30.0-30.9, adult; Z79.4 Long term (current) use of insulin; Z79.51 Long term (current) use of inhaled steroids
CPT/HCPCS: 36415-UA; 71010-TC; 74000-TC; 80048-TC; 80053-TC; 80061-TC; 80076-TC; 81001-TC; 82310-TC; 82728-90; 82948-90; 83036-90; 83540-90; 83550-90; 83605; 83735-TC; 83880-TC; 84100-TC; 85025-TC; 86141-TC; 87086-90; 93005; 94760; J0885; J1644; J1815; J1956; J2405; J2543; J7030; Z7610